=== PATIENT | female | born 1995 | race African-American/Black ===

== ENCOUNTER 2016-11-04 15:35 | Emergency (ER) | payer OTHER ==
[~2016-11-04] VITALS: Ht 167.6 cm; Wt 79.0 kg
[2016-11-04] MEDS ORDERED: ACETAMINOPHEN WITH CODEINE 300/30MG TABLET PO ONE (17:45)
[2016-11-04] MEDS ORDERED: LIDOCAINE HCL/EPINEPHRINE 1%-EPI 1:100,000 20 ML VIAL MC ONE (18:00)
[2016-11-04] MEDS ORDERED: KETOROLAC 60MG/2ML VIAL IM ONE (18:00)
[2016-11-04] MEDS ORDERED: TETANUS, DIPHTHERIA, PERTUSSIS VAC/PF 0.5ML (>7YR OLD) IM ONE (18:00)
[2016-11-04 20:24] VITALS: BP 130/80
== END 2016-11-04 20:27 | disposition home or self-care (01) ==
LOC: ER 18:09
DX: S01.512A Laceration without foreign body of oral cavity, initial encounter (principal); S01.511A Laceration without foreign body of lip, initial encounter; R51 Headache; Y04.2XXA Assault by strike against or bumped into by another person, initial encounter; Y93.89 Activity, other specified; Y92.69 Other specified industrial and construction area as the place of occurrence of the external cause; Y99.0 Civilian activity done for income or pay; K08.89 Other specified disorders of teeth and supporting structures; R03.0 Elevated blood-pressure reading, without diagnosis of hypertension; J32.0 Chronic maxillary sinusitis; F12.90 Cannabis use, unspecified, uncomplicated
CPT/HCPCS: 12011; 70486; 81025; 90471; 90715; 96372; 99284; J1885; J3490; X7700; Z7610

== ENCOUNTER 2019-01-11 16:27 | Emergency (ER) | payer OTHER ==
[~2019-01-11] VITALS: Ht 170.2 cm; Wt 78.0 kg
[2019-01-11] MEDS ORDERED: LIDOCAINE HCL/PF 1% 10 MG/ML 5ML VIAL IJ ONE (18:00)
[2019-01-11] MEDS ORDERED: HYDROCODONE/ACETAMINOPHEN 5/325MG TABLET PO ONE (18:00)
[2019-01-11 19:02] VITALS: BP 111/66
== END 2019-01-11 19:04 | disposition home or self-care (01) ==
LOC: ER 16:42
DX: L02.211 Cutaneous abscess of abdominal wall (principal); F12.10 Cannabis abuse, uncomplicated; Z98.890 Other specified postprocedural states
CPT/HCPCS: 10060; 99283; J3490